=== PATIENT | female | born 1995 | race African-American/Black ===

== ENCOUNTER 2018-04-27 13:48 | Emergency (ER) | payer MEDICAID ==
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
== END 2018-04-27 15:25 | disposition home or self-care (01) ==
LOC: ER 13:48
DX: J30.9 Allergic rhinitis, unspecified (principal); O99.333 Smoking (tobacco) complicating pregnancy, third trimester; F17.210 Nicotine dependence, cigarettes, uncomplicated; Z3A.30 30 weeks gestation of pregnancy; Z88.8 Allergy status to other drugs, medicaments and biological substances
CPT/HCPCS: 87070; 87081; 87804; 99283

== ENCOUNTER 2018-06-09 12:36 | Emergency (ER) | payer MEDICAID ==
--- OUTSIDE RECORDS SUMMARY | 2018-06-09 12:38 | XMS REPORT ---
:1995 [facility] [place] [address] [place] [id number] Care Team Providers Name Role Phone Unavailable Unavailable Unavailable Problems This patient has no known problems. Allergies, Adverse Reactions, Alerts This patient has no known allergies or adverse reactions. Medications This patient has no known medications.
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
[2018-06-09 13:23] LABS: Absolute Lymphocytes (CBC) 2.3 K/uL (0.7-4.9); Absolute Monocytes 0.7 K/uL (0.1-1.3); Absolute Neutrophil 7.9 K/uL (1.8-8.0); Basophils % 0.2 % (0-1.3); Eosinophils % 0.6 % (0-4.4); Lymphocytes % 20.7 % (15.3-44.8); Monocytes % 6.2 % (3.3-12.3); RBC Red Blood Cell Count 4.39 M/uL (3.86-4.86)
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
[2018-06-09 13:46] LABS: BUN Blood Urea Nitrogen 4 mg/dL (7-18); Bicarbonate 23 mmol/L (21-32); Glucose Level 91 mg/dL (74-106); Potassium 3.7 mmol/L (3.5-5.1); Sodium Level 140 mmol/L (136-145)
[2018-06-09] MEDS ORDERED: SILVER SULFADIAZINE 1% 50 GM TOP ONE (14:32)
[2018-06-09] MEDS ORDERED: LIDOCAINE 1% W/EPI 1:100,000 MDV 50 ML VIAL ONE (14:34)
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
== END 2018-06-09 16:11 | disposition home or self-care (01) ==
LOC: ER 12:36
PROC: 0JQ10ZZ Repair Face Subcutaneous Tissue and Fascia, Open Approach (ICD-10-PCS; principal; 2018-06-09)
DX: O26.893 Other specified pregnancy related conditions, third trimester (principal); S01.81XA Laceration without foreign body of other part of head, initial encounter; S50.11XA Contusion of right forearm, initial encounter; T24.211A Burn of second degree of right thigh, initial encounter; T31.0 Burns involving less than 10% of body surface; V49.40XA Driver injured in collision with unspecified motor vehicles in traffic accident, initial encounter; Z3A.38 38 weeks gestation of pregnancy
CPT/HCPCS: 36415; 70450; 72125; 80048; 85025; 86850; 86900; 86901; 99285

== ENCOUNTER 2018-08-15 12:39 | Emergency (ER) | payer MEDICAID ==
--- OUTSIDE RECORDS SUMMARY | 2018-08-15 12:41 | XMS REPORT ---
:1995 [facility] [place]es De Oca [address] [place] [id number] Care Team Providers Name Role Phone Unavailable Unavailable Unavailable Problems This patient has no known problems. Allergies, Adverse Reactions, Alerts This patient has no known allergies or adverse reactions. Medications This patient has no known medications.
[2018-08-15 13:27] LABS: Urine Blood NEGATIVE (NEG); Urine Glucose NEGATIVE (NEG); Urine Protein TRACE (NEG); Urine Specific Gravity 1.025 (1.005-1.030); Urine pH 5.5 (5.0-7.0)
[2018-08-15 14:18] LABS: Barbiturates NEGATIVE (NEGATIVE); Benzodiazepines NEGATIVE (NEGATIVE); Cocaine NEGATIVE (NEGATIVE); METHAMPHETAM NEGATIVE (NEGATIVE); Methadone NEGATIVE (NEGATIVE); Opiates NEGATIVE (NEGATIVE); Phencyclidine NEGATIVE (NEGATIVE); THC Cannibis NEGATIVE (NEGATIVE)
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
== END 2018-08-15 16:58 | disposition home or self-care (01) ==
LOC: ER 12:39
DX: F33.9 Major depressive disorder, recurrent, unspecified (principal); F17.210 Nicotine dependence, cigarettes, uncomplicated; Z88.8 Allergy status to other drugs, medicaments and biological substances
CPT/HCPCS: 36415; 80307; 80320; 81003; 81025; 99283

== ENCOUNTER 2018-12-15 00:21 | Emergency (ER) | payer MEDICAID, SELFPAY ==
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
[2018-12-15 01:33] VITALS: TEMP 97.8; O2SAT 100
[2018-12-15 01:34] VITALS: BP 104/75
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
== END 2018-12-15 01:28 | disposition home or self-care (01) ==
LOC: ER 00:21
DX: F41.9 Anxiety disorder, unspecified (principal)
CPT/HCPCS: 99283

== ENCOUNTER 2018-12-30 20:57 | Emergency (ER) | payer SELFPAY ==
--- OUTSIDE RECORDS SUMMARY | 2018-12-30 21:00 | XMS REPORT ---
:1995 [facility] Address [address] [place] [address] Care Team Providers Name Role Phone Unavailable Unavailable Unavailable Problems This patient has no known problems. Allergies, Adverse Reactions, Alerts This patient has no known allergies or adverse reactions. Medications This patient has no known medications.
[2018-12-30] MEDS ORDERED: HYDROCODONE/APAP 5/325 MG TAB ONE (21:39)
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
[2018-12-30 23:44] VITALS: BP 112/87; O2SAT 98
--- NOTE | 2018-12-31 08:02 | RAD REPORT ---
EXAM DESCRIPTION: RAD - Hand Left 3 View - 12/30/2018 10:25 pm CLINICAL HISTORY: Left hand pain, trauma COMPARISON: None. FINDINGS: An oblique fracture is present through the distal shaft fifth metacarpal. Approximately 20 degree ventral angulation deformity present. No other fracture changes. No other bone or joint abnor mality seen. No foreign body or other soft tissue abnormality. IMPRESSION: Distal fifth metacarpal fracture left hand as detailed.
--- NOTE | 2018-12-31 08:02 | RAD REPORT ---
EXAM DESCRIPTION: RAD - Wrist Right 3 View - 12/30/2018 10:28 pm CLINICAL HISTORY: Right wrist pain, trauma COMPARISON: None. FINDINGS: No fracture is identified. There is no dislocation or periosteal reaction noted. No acute bone or joint finding seen. No foreign body or other soft tissue abnormality. IMPRESSION: Negative right wrist examination.
== END 2018-12-30 23:31 | disposition home or self-care (01) ==
LOC: ER 20:57
PROC: 2W3DX1Z Immobilization of Left Lower Arm using Splint (ICD-10-PCS; principal; 2018-12-30)
DX: S62.327A Displaced fracture of shaft of fifth metacarpal bone, left hand, initial encounter for closed fracture (principal); X58.XXXA Exposure to other specified factors, initial encounter; Y93.9 Activity, unspecified; Y92.9 Unspecified place or not applicable; F32.9 Major depressive disorder, single episode, unspecified; F41.9 Anxiety disorder, unspecified; Z88.5 Allergy status to narcotic agent; F17.210 Nicotine dependence, cigarettes, uncomplicated
CPT/HCPCS: 99284

== ENCOUNTER 2019-03-31 15:12 | Emergency (ER) | payer SELFPAY ==
[2019-03-31] MEDS ORDERED: dexAMETHasone 4 MG TAB ONE (16:17)
[2019-03-31] MEDS ORDERED: ALBUTEROL 2.5 MG/3 ML NEB SOL ONE (16:17)
[2019-03-31] MEDS ORDERED: IPRATROPIUM BROM 0.5MG/2.5ML ONE (16:17)
--- NOTE | 2019-03-31 17:23 | RAD REPORT ---
EXAM DESCRIPTION: Jessie Single View03/31/2019 5:03 pm CLINICAL HISTORY: Cough COMPARISON: none FINDINGS: The lungs appear grossly clear. The heart is normal size IMPRESSION: No acute abnormalities displayed If patient's symptoms persist PA and lateral chest series would be recommend
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
[2019-04-02 09:43] VITALS: BP 135/78; TEMP 99; O2SAT 100
== END 2019-03-31 17:53 | disposition home or self-care (01) ==
LOC: ER 15:12
DX: J20.9 Acute bronchitis, unspecified (principal); F41.9 Anxiety disorder, unspecified; Z88.8 Allergy status to other drugs, medicaments and biological substances
CPT/HCPCS: 71045; 87804; 94640; 99285; J8540

== ENCOUNTER 2019-10-22 16:05 | Emergency (ER) | payer SELFPAY ==
[2019-10-22] MEDS ORDERED: ACETAMINOPHEN 500 MG TAB ONE (17:58)
[2019-10-22] MEDS ORDERED: PSEUDOEPHEDRINE 30 MG TAB PO ONE (18:00)
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
[2019-10-22 18:36] LABS: Urine Bacteria 20-50 /HPF (<20)
[2019-10-22 18:37] LABS: Urine Culture Reflex Order REFLEXED; Urine Mucus 2+ /HPF (NONE SEEN)
[2019-10-22 18:37] LABS: Urine Blood 2+ (NEG); Urine Glucose NEGATIVE (NEG); Urine Protein NEGATIVE (NEG); Urine Specific Gravity 1.025 (1.005-1.030)
[2019-10-24 10:08] VITALS: O2SAT 100
[2019-10-24 10:10] VITALS: BP 106/59; TEMP 98.8
== END 2019-10-22 18:58 | disposition home or self-care (01) ==
LOC: ER 16:05
DX: J06.9 Acute upper respiratory infection, unspecified (principal); N39.0 Urinary tract infection, site not specified; F17.210 Nicotine dependence, cigarettes, uncomplicated; Z88.8 Allergy status to other drugs, medicaments and biological substances
CPT/HCPCS: 81003; 81015; 81025; 87070; 87077; 87081; 87086; 87088; 87186; 87804; 99284